=== PATIENT | female | born 1965 | race Caucasian/White ===

== ENCOUNTER 2023-02-24 08:50 | Outpatient (CLI) | payer BC, SELFPAY ==
--- NOTE | 2023-02-24 09:05 | US_ITS ---
WS: [id number] ULTRASOUND SOFT TISSUES LEFT neck. HISTORY: OTHER DYSPHAGIA/LOCALIZED SWELLING,MASS LUMP, NECK COMPARISON: None available. TECHNIQUE: 2-D and color Doppler imaging is submitted. Palpable area along the LEFT neck corresponds to benign-appearing lymph nodes. There are several emeli gn lymph nodes along the LEFT cervical chain. Similar lymph nodes along the RIGHT cervical chain. IMPRESSION: Benign-appearing cervical chain lymph nodes correspond to the palpable abnormality.
--- NOTE | 2023-02-24 09:05 | FL_ITS ---
WS: [id number] Barium swallow and esophagram, 02/24/2023 Clinical Data: DYSPHAGIA Comparison: None. Fluoroscopy time: 1min [id number] # of spot films: 24 Findings: The patient swallowed the thick and thin barium, and it flowed through the hypopharynx without hesita tion. No stricture, mass, polyp or erosion was seen. There is minimal osteoarthritis of the C5-C7 hailee tebra impinging minimally onto the posterior hypopharynx. The barium entered the esophagus and there was normal motility throughout. There is a small hiatal he rnia with a Schatzki ring and minimal gastroesophageal reflux. Impression: 1. Mild posterior impingement onto the lower hypopharynx from osteoarthritis at C5-C7. 2. Small hiatal hernia with Schatzki ring and minimal gastroesophageal reflux.
== END 2023-02-24 08:51 | disposition home or self-care (01) ==
PROVIDERS: PCP Family Medicine; Visit Provider Otolaryngology
DX: M47.812 Spondylosis without myelopathy or radiculopathy, cervical region (principal); K22.2 Esophageal obstruction; K44.9 Diaphragmatic hernia without obstruction or gangrene; R13.10 Dysphagia, unspecified; R22.1 Localized swelling, mass and lump, neck
CPT/HCPCS: 74220; 76536